=== PATIENT | female | born 1980 | race Caucasian/White ===

== ENCOUNTER 2016-05-03 19:54 | Emergency (ER) | payer MEDICARE, MEDICAID ==
[2016-05-03] MEDS ORDERED: SODIUM CHLORIDE 0.9% 1,000 ML ONE (21:33)
== END 2016-05-03 23:03 | disposition home or self-care (01) ==
LOC: ER 19:54
DX: O98.513 Other viral diseases complicating pregnancy, third trimester (principal); J10.1 Influenza due to other identified influenza virus with other respiratory manifestations; Z3A.29 29 weeks gestation of pregnancy
CPT/HCPCS: 36415; 59025; 71010; 80053; 81001; 81002; 81003; 85025; 87088; 87804; 87880; 96360; 99285; G0463; 99214